=== PATIENT | female | born 1990 | race American Indian/Alaskan Native ===

== ENCOUNTER 2021-08-22 00:33 | Emergency (ER) | payer SELFPAY | END 2021-08-22 03:50 | disposition left against medical advice (07) | LOC: ED 00:33 | DX: R52 Pain, unspecified (principal); Z53.21 Procedure and treatment not carried out due to patient leaving prior to being seen by health care provider ==

== ENCOUNTER 2021-08-30 04:30 | Emergency (ER) | payer MEDICAID ==
--- NOTE | 2021-08-30 06:35 | XRay Report ---
Right ankle-3 views Right foot-3 views INDICATION: twisted foot and ankle with pain. COMPARISON: None available. IMPRESSION: No acute osseous abnormality in the ankle or foot. Normal alignment. Mild soft tissue s welling along the dorsum of the forefoot. Soft tissues are unremarkable. Signer Name: Orlando Frausto MD Signed: 08/30/2021 6:30 AM Workstation Name: [id number]
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
[2021-08-30] MEDS ORDERED: IBUPROFEN 800 MG TAB PO ONE (10:44)
[2021-08-30 11:06] VITALS: BP 88/57
== END 2021-08-30 11:06 | disposition home or self-care (01) ==
LOC: ED 04:30
DX: S99.911A Unspecified injury of right ankle, initial encounter (principal); S99.921A Unspecified injury of right foot, initial encounter; Z98.890 Other specified postprocedural states; X58.XXXA Exposure to other specified factors, initial encounter; Y93.01 Activity, walking, marching and hiking; Y92.89 Other specified places as the place of occurrence of the external cause; Y99.8 Other external cause status
CPT/HCPCS: 99283; 99284